=== PATIENT | female | born 1960 | race Caucasian/White ===

== ENCOUNTER 2017-06-26 00:31 | Emergency (ER) | payer MEDICAID, OTHER ==
[~2017-06-26] VITALS: Ht 160 cm; Wt 72.6 kg
[~2017-06-26 00:31] MED LIST: BACTRIM DS TAB1 EAC1 ORAL; IBUPROFEN600 MG ORAL; KEFLEX500 MG ORAL; NKM; NORCO 5-325 TA1 EACH ORAL; TRAMADOL HCL50 MG ORAL
[2017-06-26] MEDS ORDERED: UNOBMED (00:39)
[2017-06-26 00:40] VITALS: BP 141/74
[2017-06-26] MEDS ORDERED: Morphine Sulfate 4mg/ml Inj IVP ONE (01:15)
[2017-06-26] MEDS ORDERED: Ketorolac 30mg Inj IV ONE (01:15)
[2017-06-26 01:55] LABS: BASOPHILS % (AUTO) 1.2 % (0.0-2.0); EOSINOPHILS % (AUTO) 1.5 % (0.0-3.0); MEAN CORPUSCULAR HEMOGLOBIN 30.9 PG (27.0-31.0); MEAN CORPUSCULAR HGB CONC 33.2 G/DL (32.0-36.0); MEAN CORPUSCULAR VOLUME 93 FL (80-99); MEAN PLATELET VOLUME 6.1 FL (6.5-10.1); MONOCYTES % (AUTO) 7.6 % (1.0-10.0); NEUTROPHILS % (AUTO) 55.7 % (45.0-75.0); PLATELET COUNT 249 K/UL (150-450); RED CELL DISTRIBUTION WIDTH 12.3 % (11.6-14.8)
[2017-06-26 02:10] LABS: ALANINE AMINOTRANSFERASE 15 U/L (3-33); ALBUMIN/GLOBULIN RATIO 1.2 (1.0-2.7); ANION GAP 12 (5-15); ASPARTATE AMINO TRANSFERASE 19 U/L (5-40); CALCIUM 9.4 mg/dL (8.6-10.2); CARBON DIOXIDE 23 mEQ/L (20-30); CHLORIDE 105 mEQ/L (98-107); CREATININE 0.8 mg/dL (0.5-0.9); GLOMERULAR FILTRATION RATE > 60 mL/min (>60); HEMOLYSIS 50; POTASSIUM 4.1 mEQ/L (3.4-4.9); SODIUM 140 mEQ/L (135-145)
[2017-06-26 02:20] VITALS: BP 138/69
[2017-06-26 03:02] LABS: ERYTHROCYTE SEDIMENTATION RATE 16 MM/HR (0-30)
[2017-06-26 03:05] LABS: APPEARANCE,URINE CLEAR; KETONES,URINE NEGATIVE (NEGATIVE); LEUKOCYTE ESTERASE ,URINE NEGATIVE (NEGATIVE); NITRITE,URINE NEGATIVE (NEGATIVE); PH,URINE 6.5 (4.5-8.0); PROTEIN,URINE NEGATIVE (NEGATIVE); UROBILINOGEN,URINE NORMAL MG/DL (0.0-1.0)
[2017-06-26 03:54] LABS: INR 0.9 (0.9-1.1); PROTHROMBIN TIME 9.6 SEC (9.30-11.50)
--- NOTE | 2017-06-26 03:58 | Emergency Room Report ---
History of Present Illness General Chief Complaint: Lower Back Pain or Injury Source: Patient Present Illness HPI Patient was in shower yesterday and bent over. She had back pain suddenly which was severe. This has persisted. Unable to sleep well last night. Took advil with little relief. Pain severe and worse with bending. 10/10 aching and burning The back pain radiates to R now which is new. No numbness, weakness. No incontinence, fevers, blood thinners, oncologic problems. H/O disk problems, post MRI last year. She ambulated in. She states 2 weeks ago had CA with disorientation lasting over night. There was lack of coordination. She saw her MD 2 days later and he stated she had a stroke. She still feels slightly off balance but the AC is better. He did not rx aspirin or plavix and did not order any other tests or CT of head. She has been working since that time. Allergies: Coded Allergies: No Known Allergies (Unverified , 09/05/15) Patient History Past Medical History: see triage record Past Surgical History: lindsey Social History: Reports: smoking Social History Narrative with son Reviewed Nursing Documentation: PMH: Agreed, PSxH: Agreed Nursing Documentation-PMH Past Medical History: No History, Except For Hx Hypertension: Yes Hx Cerebrovascular Accident: Yes - last Review of Systems All Other Systems: negative except mentioned in HPI Physical Exam Vital Signs Date Time Temp Pulse Resp B/P (MAP) Pulse Ox O2 Delivery O2 Flow Rate FiO2 06/26/17 00:34 98.1 72 18 141/74 97 Room Air Sp02 EP Interpretation: reviewed, normal General Appearance: well appearing, no apparent distress, GCS 15 Head: normocephalic Eyes: bilateral eye normal inspection, bilateral eye PERRL, bilateral eye EOMI ENT: moist mucus membranes Neck: supple Respiratory: lungs clear, normal breath sounds Cardiovascular #1: regular rate, rhythm Cardiovascular #2: 2+ radial (R) Gastrointestinal: normal inspection, normal bowel sounds, non tender, no mass, non-distended Musculoskeletal: gait/station normal, normal range of motion, no calf tenderness, pelvis stable, tender - lumbar area, no step offs, muscle spasms, able to sit and lay down with difficulty Neurologic: alert, oriented x3, motor strength/tone normal, DTRs symmetric, sensory intact, cerebellar normal, normal gait, speech normal Psychiatric: anxious Skin: normal inspection, warm/dry Medical Decision Making Diagnostic Impression: Primary Impression: Sciatica Qualified Codes: M54.31 - Sciatica, right side; M54.32 - Sciatica, left side Additional Impression: Alleged stroke ER Course Patient with increased back pain. Also alleges to have had a stroke without workup or treatment from PMD. DDx: sciatica, strain, muscle spasms, disk disease, AAA, stone amongst others. No red flag sy or signs. Still with new pain pattern, concern over new process. Also, with possible CVA, needs to get CT head and lab work up. Will treat with analgesia. EKG rayna. Labs unremarkable. CTs as below. No medical emergency. Patient improved with treatment. No evidence of stroke at this time. Other considerations are migraine variant, TIA. Will start aspirin. Patient stable for outpatient observation and treatment. Labs Test 06/26/17 01:30 06/26/17 02:45 White Blood Count 9.0 K/UL (4.8-10.8) Red Blood Count 5.00 M/UL (4.20-5.40) Hemoglobin 15.4 G/DL (12.0-16.0) Hematocrit 46.5 % (37.0-47.0) Mean Corpuscular Volume 93 FL (80-99) Mean Corpuscular Hemoglobin 30.9 PG (27.0-31.0) Mean Corpuscular Hemoglobin Concent 33.2 G/DL (32.0-36.0) Red Cell Distribution Width 12.3 % (11.6-14.8) Platelet Count 249 K/UL (150-450) Mean Platelet Volume 6.1 FL (6.5-10.1) Neutrophils (%) (Auto) 55.7 % (45.0-75.0) Lymphocytes (%) (Auto) 34.0 % (20.0-45.0) Monocytes (%) (Auto) 7.6 % (1.0-10.0) Eosinophils (%) (Auto) 1.5 % (0.0-3.0) Basophils (%) (Auto) 1.2 % (0.0-2.0) Erythrocyte Sedimentation Rate 16 MM/HR (0-30) Prothrombin Time 9.6 SEC (9.30-11.50) Prothromb Time International Ratio 0.9 (0.9-1.1) Activated Partial Thromboplast Time 28 SEC (23-33) Sodium Level 140 mEQ/L (135-145) Potassium Level 4.1 mEQ/L (3.4-4.9) Chloride Level 105 mEQ/L (98-107) Carbon Dioxide Level 23 mEQ/L (20-30) Anion Gap 12 (5-15) Blood Urea Nitrogen 10 mg/dL (7-23) Creatinine 0.8 mg/dL (0.5-0.9) Estimat Glomerular Filtration Rate > 60 mL/min (>60) Glucose Level 106 mg/dL (74-106) Calcium Level 9.4 mg/dL (8.6-10.2) Total Bilirubin 0.3 mg/dL (0.0-1.2) Aspartate Amino Transf (AST/SGOT) 19 U/L (5-40) Alanine Aminotransferase (ALT/SGPT) 15 U/L (3-33) Alkaline Phosphatase 125 U/L (35-104) Total Creatine Kinase 147 U/L (26-140) Total Protein 7.0 g/dL (6.6-8.7) Albumin 3.9 g/dL (3.5-5.2) Globulin 3.1 g/dL Albumin/Globulin Ratio 1.2 (1.0-2.7) Urine Color Pale yellow Urine Appearance Clear Urine pH 6.5 (4.5-8.0) Urine Specific [place] 1.010 (1.005-1.035) Urine Protein Negative (NEGATIVE) Urine Glucose (UA) Negative (NEGATIVE) Urine Ketones Negative (NEGATIVE) Urine Occult Blood Negative (NEGATIVE) Urine Nitrite Negative (NEGATIVE) Urine Bilirubin Negative (NEGATIVE) Urine Urobilinogen Normal MG/DL (0.0-1.0) Urine Leukocyte Esterase Negative (NEGATIVE) Urine Opiates Screen Positive (NEGATIVE) Urine Barbiturates Screen Negative (NEGATIVE) Phencyclidine (PCP) Screen Negative (NEGATIVE) Urine Amphetamines Screen Negative (NEGATIVE) Urine Benzodiazepines Screen Negative (NEGATIVE) Urine Cocaine Screen Negative (NEGATIVE) Urine Marijuana (THC) Screen Negative (NEGATIVE) EKG Diagnostic Results Rate: bradycardiac Rhythm: NSR ST Segments: no acute changes Rhythm Strip Diag. Results EP Interpretation: yes Rhythm: no PVC's, no ectopy, other - rayna Chest X-Ray Diagnostic Results Chest X-Ray Diagnostic Results : Chest X-Ray Ordered: Yes # of Views/Limited/Complete: 1 View Indication: Other EP Interpretation: Yes Interpretation: no consolidation, no effusion, no pneumothorax, no acute cardiopulmonary disease Impression: No acute disease Electronically Signed by: Angelito Mak MD CT/MRI/US Diagnostic Results CT/MRI/US Diagnostic Results #1: Imaging Test Ordered: head Impression periventricular disease, no acute process CT/MRI/US Diagnostic Results #2: Imaging Test Ordered: LS spine Impression Findings: Bony alignment is normal. Vertebral body heights are preserved. Disc spaces are preserved. No acute fractures. No dislocations. Subcentimeter low-attenuation lesion is seen within the L4 vertebral body to the right of midline posteriorly. This demonstrates fat attenuation and a few vertical striations, consistent with benign vertebral body hemangioma At L2-3, there is mild circumferential annular bulge. This does not severely compromise the thecal sac or neural foramina, however. At L3-4, there is mild circumferential annular bulge. This does not significantly compromise the thecal sac or neural foramina At L4-5, there is mild circumferential annular bulge. This is no significant compromise the spinal canal. Small osteophytes posterior may lead to very mild narrowing of the right neural foramen. At L5-S1, there is mild circumferential annular bulge. This does not significantly compromise the spinal canal or the neural foramina. At the remaining levels, no significant disc bulge or protrusion, spinal stenosis, or neural foraminal narrowing. There is vacuum formation in the bilateral sacroiliac joints without significant joint space narrowing, indicative of very early degenerative change. The extraspinal soft tissues are remarkable for the presence of cholecystectomy clips. There are slightly prominent bilateral external pelvises. Impression: No acute bony trauma Minimal degenerative changes, as described. No evidence of significant neural impingement Incidental findings as noted Last Vital Signs Date Time Temp Pulse Resp B/P (MAP) Pulse Ox O2 Delivery O2 Flow Rate FiO2 06/26/17 04:14 97.5 64 16 120/75 95 Room Air Status: improved Disposition: HOME, SELF-CARE Condition: Improved Scripts Tramadol Hcl* (ULTRAM*) 50 Mg Tablet 50 MG ORAL Q6H Y for For Pain, #10 TAB 0 Refills Prov: Angelito Mak M.D. 06/26/17 Ibuprofen* (MOTRIN*) 600 Mg Tablet 600 MG ORAL Q6H Y for For Pain, #20 TAB Prov: Angelito Mak M.D. 06/26/17 Aspirin* (ASPIRIN*) 81 Mg Tab.chew 81 MG ORAL DAILY, #30 TAB Prov: Angelito Mak M.D. 06/26/17 Referrals: NOT CHOSEN JOE/,REFERRING (PCP) Angelito Mak M.D. Jun 26, 2017 03:58
[2017-06-26] MEDS ORDERED: ASPIRIN81 MG ORAL (04:02)
[2017-06-26] MEDS ORDERED: TRAMADOL HCL50 MG ORAL (04:02)
[2017-06-26] MEDS ORDERED: IBUPROFEN600 MG ORAL (04:02)
[2017-06-26 04:05] VITALS: BP 120/75
[2017-06-26 04:14] VITALS: BP 120/75
--- NOTE | 2017-06-26 09:15 | Diagnostic Imaging Report ---
Indications: Back pain Technique: Spiral acquisitions obtained through the lumbar spine. Multiplanar reconstructions were generated. No IV contrast utilized. Total dose length product 529 mGycm. CTDIvol(s) 50 mGy. Dose reduction achieved using automated exposure control Comparison: None Findings: Bony alignment is normal. Vertebral body heights are preserved. Disc spaces are preserved. No acute fractures. No dislocations. Subcentimeter low-attenuation lesion is seen within the L4 vertebral body to the right of midline posteriorly. This demonstrates fat attenuation and a few vertical striations, consistent with benign vertebral body hemangioma At L2-3, there is mild circumferential annular bulge. This does not severely compromise the thecal sac or neural foramina, however. At L3-4, there is mild circumferential annular bulge. This does not significantly compromise the thecal sac or neural foramina At L4-5, there is mild circumferential annular bulge. This is no significant compromise the spinal canal. Small osteophytes posterior may lead to very mild narrowing of the right neural foramen. At L5-S1, there is mild circumferential annular bulge. This does not significantly compromise the spinal canal or the neural foramina. At the remaining levels, no significant disc bulge or protrusion, spinal stenosis, or neural foraminal narrowing. There is vacuum formation in the bilateral sacroiliac joints without significant joint space narrowing, indicative of very early degenerative change. The extraspinal soft tissues are remarkable for the presence of cholecystectomy clips. There are slightly prominent bilateral external pelvises. Impression: No acute bony trauma Minimal degenerative changes, as described. No evidence of significant neural impingement Incidental findings as noted The CT scanner at [facility] is accredited by the [employer] and the scans are performed using protocols designed to limit radiation exposure to as low as reasonably achievable to attain images of sufficient resolution adequate for diagnostic evaluation.
--- NOTE | 2017-06-26 09:18 | Diagnostic Imaging Report ---
Indications: Headache Technique: Spiral acquisitions obtained through the brain. Angled axial and coronal 5 x 5 mm slices were reconstructed. Total dose length product 1361 mGycm. CTDI vol(s) 70 mGy. Dose reduction achieved using automated exposure control Comparison: None Findings: Extra-axial CSF spaces. There is mild periventricular deep white matter chronic ischemic change. No acute hemorrhage or edema. No mass effect or midline shift. Normal hernandez-white differentiation. Visualized orbits and sinuses are unremarkable. The mastoids are clear. The calvarium is intact. Impression: Negative for acute intracranial bleed or mass effect Minimal periventricular deep white matter chronic ischemic change This agrees with the preliminary interpretation provided overnight by [facility] service. The CT scanner at [facility] is accredited by the [employer] and the scans are performed using protocols designed to limit radiation exposure to as low as reasonably achievable to attain images of sufficient resolution adequate for diagnostic evaluation.
--- NOTE | 2017-06-26 16:01 | Diagnostic Imaging Report ---
Indication: Chest pain Technique: One view of the chest Comparison: none Findings: There is some atelectasis at the left lung base. The heart is upper limits of normal in size. Aorta is tortuous and calcified. The upper mediastinum is unremarkable. Impression: Left basilar atelectasis. No acute process otherwise This agrees with the preliminary interpretation provided by the emergency room physician
== END 2017-06-26 04:15 | disposition home or self-care (01) ==
LOC: EMR 01:30
DX: M54.31 Sciatica, right side (principal); I10 Essential (primary) hypertension; Z86.73 Personal history of transient ischemic attack (TIA), and cerebral infarction without residual deficits; R51 Headache; M54.9 Dorsalgia, unspecified; R07.9 Chest pain, unspecified
CPT/HCPCS: 36415; 70450; 71010; 72131; 80053; 80300; 81003; 82550; 85025; 85610; 85651; 85730; 93005; 96365; 96375; 99284; J1885; J2270

== ENCOUNTER 2017-12-05 20:39 | Emergency (ER) | payer MEDICAID ==
[~2017-12-05] VITALS: Ht 162.6 cm; Wt 72.6 kg
[~2017-12-05 20:39] MED LIST changes: +ASPIRIN81 MG ORAL; +UNOBMED
--- NOTE | 2017-12-05 21:26 | Emergency Room Report ---
History of Present Illness General Chief Complaint: Lower Extremity Injury Source: Patient Present Illness HPI Patient reports she stubbed her left toe about 10 days ago, had pain to the fourth digit she was putting more of her weight on the right leg and noticed some increased pain to the heel area and now has seen an open wound and there was some discharge from the area Pain is 5 out of 10 on both areas including the right heel in the left fourth toe Denies any ankle pain denies any calf pain denies any fevers or chills denies any history of diabetes Allergies: Coded Allergies: No Known Allergies (Unverified , 09/05/15) Patient History Past Medical History: see triage record Pertinent Family History: none Reviewed Nursing Documentation: PMH: Agreed, PSxH: Agreed Nursing Documentation-PMH Hx Hypertension: Yes Hx Cerebrovascular Accident: Yes - last Review of Systems All Other Systems: negative except mentioned in HPI Physical Exam Vital Signs Date Time Temp Pulse Resp B/P (MAP) Pulse Ox O2 Delivery O2 Flow Rate FiO2 12/05/17 20:43 99.0 78 18 141/89 96 Room Air 99.0 Sp02 EP Interpretation: reviewed, normal General Appearance: well appearing, no apparent distress Head: normocephalic, atraumatic Eyes: bilateral eye PERRL, bilateral eye EOMI ENT: hearing grossly normal, normal pharynx Neck: supple Respiratory: lungs clear Cardiovascular #1: regular rate, rhythm, no edema Gastrointestinal: normal bowel sounds, non tender Musculoskeletal: other - Swelling to the left fourth digit tender on palpation , small puncture type wound opening right heel small serosanguineous discharge tender on palpation Neurologic: alert, oriented x3 Skin: other - As above Lymphatic: no adenopathy Medical Decision Making Diagnostic Impression: Primary Impression: Toe fracture, left Additional Impression: Cellulitis ER Course Imaging study of the left foot does reveal likely fourth metatarsal proximal fracture this appears to be old in line with her clinical history Patient's right foot does not reveal any obvious foreign body Given the erythema and discharge however concern for cellulitis is made Patient is placed on oral antibiotics she will be contacting her primary physician tomorrow And will require close outpatient follow-up Other X-Ray Diagnostic Results Other X-Ray Diagnostic Results #1: X-Ray ordered: Left foot # of Views/Limited Vs Complete: 3 View Indication: Pain EP Interpretation: Yes Interpretation: no dislocation, no soft tissue swelling, other - Appearance of subacute fourth digit fracture proximal Impression: Other Electronically Signed by: Tala Hastings DO Other X-Ray Diagnostic Results #2: X-Ray ordered: right foot # of Views/Limited Vs Complete: 2 View Indication: Pain EP Interpretation: Yes Interpretation: no dislocation, no fractures, other - Mild increased soft tissue marking Impression: No acute disease Electronically Signed by: Tala Hastings DO Last Vital Signs Date Time Temp Pulse Resp B/P (MAP) Pulse Ox O2 Delivery O2 Flow Rate FiO2 12/05/17 20:43 99.0 78 18 141/89 96 Room Air 99.0 Status: improved Disposition: HOME, SELF-CARE Condition: Improved Scripts Trimethoprim/Sulfamethoxazole 160/800* (BACTRIM DS TABLET*) 1 Each Tablet 1 TAB ORAL Q12H, #14 TAB 0 Refills Prov: TALA HASTINGS D.O. 12/05/17 Cephalexin* (KEFLEX*) 500 Mg Capsule 500 MG ORAL Q6H, #28 CAP 0 Refills Prov: TALA HASTINGS D.O. 12/05/17 Hydrocodone Bit/Acetaminophen 5-325* (NORCO 5-325*) 1 Each Tablet 1 TAB ORAL Q6H Y for For Pain, #10 TAB 0 Refills Prov: TALA HASTINGS D.O. 12/05/17 Additional Instructions: Patient is provided with the discharge instructions notified to follow up with primary doctor in the next 2-3 days otherwise return to the er with any worsening symptoms. Please note that this report is being documented using [employer] technology. This can lead to erroneous entry secondary to incorrect interpretation by the dictating instrument. TALA HASTINGS D.O. Dec 05, 2017 21:26
[2017-12-05] MEDS ORDERED: KEFLEX500 MG ORAL (21:51)
[2017-12-05] MEDS ORDERED: BACTRIM DS TAB1 EAC1 ORAL (21:51)
[2017-12-05] MEDS ORDERED: NORCO 5-325 TA1 EACH ORAL (21:51)
[2017-12-05 22:08] VITALS: BP 141/89
--- NOTE | 2017-12-06 10:21 | Diagnostic Imaging Report ---
Indication: Pain Comparison: None Findings: 3 views of the left foot were obtained. No acute fractures, malalignment, erosions or periostitis are identified. Soft tissues are unremarkable. Impression: No acute findings
--- NOTE | 2017-12-06 10:22 | Diagnostic Imaging Report ---
Indication: Right foot pain Comparison: None Findings: 2 views of the right foot were obtained. No acute fractures, malalignment, erosions or periostitis are identified. Soft tissues are unremarkable. Impression: No acute findings.
== END 2017-12-05 22:09 | disposition home or self-care (01) ==
LOC: EMR 21:01
DX: S92.342A Displaced fracture of fourth metatarsal bone, left foot, initial encounter for closed fracture (principal); I10 Essential (primary) hypertension; Z86.73 Personal history of transient ischemic attack (TIA), and cerebral infarction without residual deficits; W22.8XXA Striking against or struck by other objects, initial encounter; Y92.9 Unspecified place or not applicable
CPT/HCPCS: 99284

== ENCOUNTER 2019-02-05 11:48 | Emergency (ER) | payer MEDICAID, OTHER ==
[~2019-02-05] VITALS: Ht 157.5 cm; Wt 68.0 kg
--- NOTE | 2019-02-05 12:08 | NUR ---
ED Nurse Note: Pt from home came in for left side CP, non radiating and diarrhea x 2 weeks. States she has decreased appetite lately. No recent travel. Pt also c/o dry mouth. Pt is AAO x4, ambulatory with unlabored breathing. Noted dry mouth. Skin turgor normal.
--- NOTE | 2019-02-05 12:40 | NUR ---
ED Nurse Note: Blood and urine specimen sent.
[2019-02-05 12:52] VITALS: BP 136/71
[2019-02-05 12:57] LABS: BASOPHILS % (AUTO) 1.4 % (0.0-2.0); EOSINOPHILS % (AUTO) 0.7 % (0.0-3.0); HEMATOCRIT 48.3 % (37.0-47.0); HEMOGLOBIN 16.2 G/DL (12.0-16.0); LYMPHOCYTES % (AUTO) 22.3 % (20.0-45.0); MEAN CORPUSCULAR VOLUME 91 FL (80-99); MONOCYTES % (AUTO) 8.4 % (1.0-10.0); NEUTROPHILS % (AUTO) 67.2 % (45.0-75.0); PLATELET COUNT 265 K/UL (150-450); RED CELL DISTRIBUTION WIDTH 12.7 % (11.6-14.8); WHITE BLOOD COUNT 6.8 K/UL (4.8-10.8)
[2019-02-05 13:02] LABS: ANION GAP 11 mmol/L (5-15); BLOOD UREA NITROGEN 7 mg/dL (7-18); CALCIUM 9.5 MG/DL (8.5-10.1); CARBON DIOXIDE 25 MMOL/L (21-32); CHLORIDE 106 MMOL/L (98-107); CREATININE 0.7 MG/DL (0.55-1.30); POTASSIUM 3.9 MMOL/L (3.5-5.1); SODIUM 142 MMOL/L (136-145)
[2019-02-05 13:07] LABS: ALANINE AMINOTRANSFERASE 22 U/L (12-78); ALBUMIN/GLOBULIN RATIO 1.1 (1.0-2.7); ALKALINE PHOSPHATASE 140 U/L (46-116); ASPARTATE AMINO TRANSFERASE 16 U/L (15-37); BILIRUBIN,TOTAL 0.4 MG/DL (0.2-1.0); CREATINE KINASE 82 U/L (26-308)
--- NOTE | 2019-02-05 13:08 | Emergency Room Report ---
History of Present Illness General Chief Complaint: Chest Pain Source: Patient Present Illness HPI Patient present with complaints of chest pain or palpitation and increased thirst Patient reports that over the past several days she feels her mouth is significantly dry She has had increased diarrhea as well Denies any abdominal pain with a and eyes any vomiting denies any headache Patient's chest pain is midsternal and associated with palpitation Patient is a current smoker Denies any focal weakness denies any recent travel or pleurisy Allergies: Coded Allergies: No Known Allergies (Unverified , 09/05/15) Patient History Past Medical History: see triage record Pertinent Family History: none Now: No Reviewed Nursing Documentation: PMH: Agreed; PSxH: Agreed Nursing Documentation-PMH Past Medical History: No History, Except For Hx Hypertension: Yes Hx Cerebrovascular Accident: Yes - Last one in 2015 Review of Systems All Other Systems: negative except mentioned in HPI Physical Exam Vital Signs Date Time Temp Pulse Resp B/P (MAP) Pulse Ox O2 Delivery O2 Flow Rate FiO2 02/05/19 11:58 98.6 67 20 94 Room Air 02/05/19 12:52 136/71 Sp02 EP Interpretation: reviewed, normal General Appearance: well appearing, no apparent distress Head: normocephalic, atraumatic Eyes: bilateral eye PERRL, bilateral eye EOMI ENT: hearing grossly normal, normal pharynx, TMs + canals normal, uvula midline Neck: full range of motion, supple, no meningismus, no bony tend Respiratory: lungs clear, normal breath sounds, no rhonchi, no respiratory distress, no retraction, no accessory muscle use Cardiovascular #1: normal peripheral pulses, regular rate, rhythm, no edema, no gallop, no JVD, no murmur Gastrointestinal: normal bowel sounds, non tender, soft, no mass, no organomegaly, non-distended, no guarding, no hernia, no pulsatile mass, no rebound Genitourinary: no CVA tenderness Musculoskeletal: normal inspection Neurologic: oriented x3, responsive, photographer news III-XII nml as tested, motor strength/ tone normal, sensory intact Psychiatric: mood/affect normal Skin: normal color, no rash, warm/dry, palpation normal Lymphatic: normal inspection, no adenopathy Medical Decision Making Diagnostic Impression: Primary Impression: Chest pain ER Course Patient is a fairly complex patient with multiple differential to consideration including but not limited to cardiac cardiopulmonary and vascular emergencies Patient's blood work and imaging are negative Patient also appears to have some symptoms of diarrhea She was encouraged to decrease sugar type liquid intake such as Gatorade And will return with any worsening changes Labs Test 02/05/19 12:30 White Blood Count 6.8 K/UL (4.8-10.8) Red Blood Count 5.30 M/UL (4.20-5.40) Hemoglobin 16.2 G/DL (12.0-16.0) Hematocrit 48.3 % (37.0-47.0) Mean Corpuscular Volume 91 FL (80-99) Mean Corpuscular Hemoglobin 30.5 PG (27.0-31.0) Mean Corpuscular Hemoglobin Concent 33.5 G/DL (32.0-36.0) Red Cell Distribution Width 12.7 % (11.6-14.8) Platelet Count 265 K/UL (150-450) Mean Platelet Volume 6.3 FL (6.5-10.1) Neutrophils (%) (Auto) 67.2 % (45.0-75.0) Lymphocytes (%) (Auto) 22.3 % (20.0-45.0) Monocytes (%) (Auto) 8.4 % (1.0-10.0) Eosinophils (%) (Auto) 0.7 % (0.0-3.0) Basophils (%) (Auto) 1.4 % (0.0-2.0) Sodium Level 142 MMOL/L (136-145) Potassium Level 3.9 MMOL/L (3.5-5.1) Chloride Level 106 MMOL/L (98-107) Carbon Dioxide Level 25 MMOL/L (21-32) Anion Gap 11 mmol/L (5-15) Blood Urea Nitrogen 7 mg/dL (7-18) Creatinine 0.7 MG/DL (0.55-1.30) Estimat Glomerular Filtration Rate > 60 mL/min (>60) Glucose Level 86 MG/DL (74-106) Calcium Level 9.5 MG/DL (8.5-10.1) Total Bilirubin 0.4 MG/DL (0.2-1.0) Aspartate Amino Transf (AST/SGOT) 16 U/L (15-37) Alanine Aminotransferase (ALT/SGPT) 22 U/L (12-78) Alkaline Phosphatase 140 U/L (46-116) Total Creatine Kinase 82 U/L (26-308) Total Protein 7.8 G/DL (6.4-8.2) Albumin 4.0 G/DL (3.4-5.0) Globulin 3.8 g/dL Albumin/Globulin Ratio 1.1 (1.0-2.7) Urine Opiates Screen Negative (NEGATIVE) Urine Barbiturates Screen Negative (NEGATIVE) Phencyclidine (PCP) Screen Negative (NEGATIVE) Urine Amphetamines Screen Negative (NEGATIVE) Urine Benzodiazepines Screen Negative (NEGATIVE) Urine Cocaine Screen Negative (NEGATIVE) Urine Marijuana (THC) Screen Negative (NEGATIVE) EKG Diagnostic Results Rate: normal Rhythm: NSR ST Segments: other - Nonspecific ST T-wave changes Rhythm Strip Diag. Results EP Interpretation: yes Rate: 60 Rhythm: NSR, no PVC's, no ectopy Chest X-Ray Diagnostic Results Chest X-Ray Diagnostic Results : Chest X-Ray Ordered: Yes # of Views/Limited/Complete: 1 View Indication: Chest Pain EP Interpretation: Yes Interpretation: no consolidation, no effusion, no pneumothorax Impression: No acute disease Electronically Signed by: Tala Maguire DO Last Vital Signs Date Time Temp Pulse Resp B/P (MAP) Pulse Ox O2 Delivery O2 Flow Rate FiO2 02/05/19 12:52 98.6 60 14 136/71 99 Room Air Status: improved Disposition: HOME, SELF-CARE Condition: Improved Referrals: NON PHYSICIAN (PCP) Additional Instructions: Patient is provided with the discharge instructions notified to follow up with primary doctor in the next 2-3 days otherwise return to the er with any worsening symptoms. Please note that this report is being documented using [employer] technology. This can lead to erroneous entry secondary to incorrect interpretation by the dictating instrument. Tala Maguire DO February 05, 2019 13:08
--- NOTE | 2019-02-05 13:30 | Diagnostic Imaging Report ---
Indication: Chest pain Comparison: 925 A single view chest radiograph was obtained. Findings: Cardiomediastinal appearance is within normal limits for age. The lungs are clear. Pulmonary vascularity is appropriate. The diaphragmatic contour is smooth and costophrenic angles are sharp. No pleural effusions are identified. The bones are unremarkable. Impression: No acute findings
[2019-02-05 14:00] VITALS: BP 139/80
[2019-02-05 14:50] VITALS: BP 143/59
--- NOTE | 2019-02-06 14:42 | Cardiology Report ---
APPROVED REPORT EKG Measurement Heart [id number] Normal sinus rhythm Possible Left atrial enlargement Low voltage QRS Borderline ECG
== END 2019-02-05 14:50 | disposition home or self-care (01) ==
LOC: EMR 12:21
DX: R07.9 Chest pain, unspecified (principal); R00.2 Palpitations; R63.1 Polydipsia; F17.200 Nicotine dependence, unspecified, uncomplicated; I10 Essential (primary) hypertension; Z86.73 Personal history of transient ischemic attack (TIA), and cerebral infarction without residual deficits; R19.7 Diarrhea, unspecified
CPT/HCPCS: 36415; 71045; 80053; 80307; 82550; 84484; 85025; 93005; 96360; 99284

== ENCOUNTER 2019-12-03 10:57 | Emergency (ER) | payer OTHER ==
[~2019-12-03] VITALS: Ht 157.5 cm; Wt 77.1 kg
[2019-12-03] MEDS ORDERED: CRESTOR10 M2 ORAL (11:05)
[2019-12-03] MEDS ORDERED: METOPROLOL TART25 MG ORAL (11:05)
--- NOTE | 2019-12-03 11:27 | Emergency Room Report ---
History of Present Illness General Chief Complaint: Female Urogenital Problems Source: Patient, Medical Record Present Illness HPI Patient is a 58-year-old female past medical history of COPD who presents to the ER complaining of urinary frequency for the past 3 to 4 days. Patient states that it bourne when the urine comes out. She denies any hematuria. She denies any abdominal pain. She denies any nausea or vomiting. She denies any fever or chills. Patient also complains of right flank pain for the past few days. She denies any focal weakness. She denies any paresthesias or changes to her bowel habits. Allergies: Coded Allergies: No Known Allergies (Unverified , 09/05/15) Patient History Social History: Reports: smoking Last Menstrual Period: menopause Reviewed Nursing Documentation: PMH: Agreed; PSxH: Agreed Nursing Documentation-PMH Past Medical History: No History, Except For Hx Hypertension: Yes Hx Cerebrovascular Accident: Yes - Last one in 2015 Review of Systems All Other Systems: negative except mentioned in HPI Physical Exam Vital Signs Date Time Temp Pulse Resp B/P (MAP) Pulse Ox O2 Delivery O2 Flow Rate FiO2 12/03/19 11:01 97.9 71 18 134/85 (101) 96 Room Air Sp02 EP Interpretation: reviewed, normal General Appearance: no apparent distress, alert, GCS 15, non-toxic Head: normocephalic, atraumatic Eyes: bilateral eye normal inspection, bilateral eye PERRL ENT: hearing grossly normal, normal pharynx, no angioedema, normal voice Neck: full range of motion, supple/symm/no masses Respiratory: chest non-tender, lungs clear, normal breath sounds, speaking full sentences Cardiovascular #1: regular rate, rhythm, no edema Cardiovascular #2: 2+ carotid (R), 2+ carotid (L), 2+ radial (R), 2+ radial (L) , 2+ dorsalis pedis (R), 2+ dorsalis pedis (L) Gastrointestinal: normal bowel sounds, non tender, soft, non-distended, no guarding, no rebound Rectal: deferred Genitourinary: normal inspection, CVA tenderness (R) Musculoskeletal: back normal, normal range of motion, calf tenderness, gait/ station normal, non-tender, other - No saddle anesthesia Neurologic: alert, motor strength/tone normal, oriented x3, sensory intact, responsive, speech normal Psychiatric: judgement/insight normal, memory normal, mood/affect normal, no suicidal/homicidal ideation Reflexes: 3+ knee (R), 3+ knee (L) Skin: no rash Lymphatic: no adenopathy Medical Decision Making Diagnostic Impression: Primary Impression: Microscopic hematuria Additional Impressions: Diverticulosis Urinary frequency ER Course Patient's UA demonstrates microscopic hematuria. No evidence for UTI. CT demonstrates no acute significant abnormalities. Questionable past ureteral stone. Patient given Motrin with good pain relief. Patient advised to follow- up with her primary care physician for further treatment and evaluation. After discussing risks and benefits of further diagnostics, treatment plans, as well as indications for and risks of admission, the patient is agreeable to being discharged home. I have explained that their evaluation and treatment in the emergency department today is an important step towards them achieving better health but that their evaluation today is not intended to replace further evaluation and treatment by a physician in their local clinic. I have explained that while the current findings suggest no immediate life threatening emergency they will require further evaluation and treatment by a physician of their choice in their area. They understand that it will be necessary for them to review the final reports of their ED visit with their clinic physician. We have reviewed indications for return to the Emergency Department. I have explained that additional time may need to pass and/or additional testing as an outpatient may be necessary before a definitive diagnosis can be made. They tell me they are willing to follow up as instructed within the timeframe I recommend. They appear to understand what we discussed. Additionally they understand that if they are unable to be seen by an outpatient physician they are welcome, and in fact should, return to the Emergency Department for a repeat evaluation. The patient is stable at time of discharge. Last Vital Signs Date Time Temp Pulse Resp B/P (MAP) Pulse Ox O2 Delivery O2 Flow Rate FiO2 12/03/19 11:01 97.9 71 18 134/85 (101) 96 Room Air Disposition: HOME, SELF-CARE Condition: Stable Scripts Ibuprofen* (MOTRIN*) 600 Mg Tablet 600 MG ORAL Q8H PRN for For Pain, #30 TAB 0 Refills Prov: Lora Jones M.D. 12/03/19 Additional Instructions: Patient discharged in stable improved condition with outpatient follow-up and strict return precautions Lora Jones M.D. Dec 03, 2019 11:27
[2019-12-03 11:29] VITALS: BP 134/85
[2019-12-03 11:37] LABS: APPEARANCE,URINE CLEAR; BILIRUBIN, URINE NEGATIVE (NEGATIVE); COLOR,URINE PALE YELLOW; GLUCOSE, URINE (UA) NEGATIVE (NEGATIVE); KETONES,URINE NEGATIVE (NEGATIVE); LEUKOCYTE ESTERASE ,URINE NEGATIVE (NEGATIVE); NITRITE,URINE NEGATIVE (NEGATIVE); PH,URINE 6.5 (4.5-8.0); PROTEIN,URINE NEGATIVE (NEGATIVE); UROBILINOGEN,URINE NORMAL MG/DL (0.0-1.0)
--- NOTE | 2019-12-03 13:30 | Diagnostic Imaging Report ---
INDICATION: Abdominal pain TECHNIQUE: Continuous helical transaxial imaging of the abdomen and pelvis was obtained from the lung bases to the pubic symphysis. No intravenous contrast was administered. Coronal 2-D reformats were also obtained. Automatic Exposure Control was utilized. Total Dose length Product (DLP): 372.[address] Dose Index Volume (CTDIvol): 7.4 mGy Comparison: none FINDINGS: Lungs: Reticular densities seen in the posterior aspects of both lung bases likely atelectasis.. There is a calcified granuloma at the right lung base. Liver: Unremarkable Gallbladder/biliary system: Gallbladder is absent. Cholecystectomy clips noted. No biliary ductal dilatation is seen.. Spleen: Unremarkable Pancreas: Unremarkable Kidneys/Bladder: No definite stone or hydronephrosis are identified. The urinary bladder is unremarkable.. Adrenal glands: Unremarkable Bowel: The gas pattern is nonobstructive. The appendix is seen and appears normal. There are diverticula within the sigmoid colon. There is no evidence of diverticulitis. Aorta/IVC: There is moderate calcification of the wall of aorta and iliac arteries. There is no aneurysm. Peritoneum: There is no free fluid. Uterus/ovaries: The uterus is noted. The ovaries are not seen. Bones: Discectomy and posterior instrumented fusion are noted at L4-5. Bones are osteopenic. IMPRESSION: No acute findings. Status post cholecystectomy Basal atelectasis Old granulomatous disease. Diverticulosis of the colon. Arterial vascular disease L4-5 fusion and discectomy Note: Evaluation of solid organs is limited on non contrast imaging. The CT scanner at [facility] is accredited by the [employer] and the scans are performed using dose optimization techniques as appropriate to a performed exam including Automatic Exposure control.
[2019-12-03] MEDS ORDERED: IBUPROFEN600 MG ORAL (13:36)
[2019-12-03 13:39] VITALS: BP 136/77
== END 2019-12-03 13:40 | disposition home or self-care (01) ==
LOC: EMR 13:40
DX: R31.9 Hematuria, unspecified (principal); K57.90 Diverticulosis of intestine, part unspecified, without perforation or abscess without bleeding; R35.0 Frequency of micturition; F17.200 Nicotine dependence, unspecified, uncomplicated; I10 Essential (primary) hypertension; Z86.73 Personal history of transient ischemic attack (TIA), and cerebral infarction without residual deficits; J44.9 Chronic obstructive pulmonary disease, unspecified
CPT/HCPCS: 74176; 81003; Z7502; 99284